=== PATIENT | female | born 1940 | race Caucasian/White ===

== ENCOUNTER 2019-04-14 10:13 | Inpatient (IN) ==
[2019-04-14 10:55] LABS: Basophils % 0.4 %; Eosinophils # 0.5 K/mcL (0.0-0.6); Hematocrit 36.5 % (35.3-44.9); Hemoglobin 12.3 g/dL (11.5-15.4); Immature Granulocytes % 0.3 % (0-4); Lymphocytes % 26.5 %; Mean Corpuscular HGB Conc 33.7 g/dL (31.6-35.5); Mean Corpuscular Hemoglobin 33.8 pg (28.0-33.3); Mean Corpuscular Volume 100.3 fL (83.0-100.0); Mean Platelet Volume 10.9 fL (9.4-12.4); Monocytes # 0.8 K/mcL (0.0-1.3); Monocytes % 7.4 %; Neutrophils # 6.9 K/mcL (1.6-8.9); Platelet Count 212 K/mcL (140-400); Red Blood Count 3.64 M/mcL (3.82-4.97); Red Cell Distribution Width 13.2 % (11.5-14.5); Segmented Neutrophils % 61.4 %; White Blood Count 11.2 K/mcL (4.3-11.1)
[2019-04-14 10:59] LABS: INR 1.1; Prothrombin Time 12.2 Seconds (9.4-12.1)
[2019-04-14 11:15] LABS: Calcium 10.2 mg/dL (8.6-10.3); Magnesium 2.1 mg/dL (1.6-2.6); Potassium 4.5 mEq/L (3.5-5.1); Troponin I 0.03 ng/mL (< 0.04)
[2019-04-14 11:57] LABS: Bacteria,Urine Many per hpf (None-Few); Bilirubin,Urine Negative (Negative); Blood,Urine Negative (Negative); Clarity,Urine Cloudy (Clear); Color,Urine Yellow (Yellow); Glucose,Urine (UA) Normal (Normal); Hyaline Casts,Urine None Seen per lpf (None-Few); Ketones,Urine Negative (Negative); Leukocyte Esterase,Urine Small (Negative); Nitrite,Urine Positive (Negative); Protein,Urine 30 mg/dL (Neg-Trace); RBC,Urine 0-3 per hpf (0-3); Specific Gravity,Urine 1.022 (1.010-1.025); Squamous Epithelial Cell,Urine Few per lpf (None-Few); Urobilinogen,Urine Normal (Normal); WBC,Urine 15-30 per hpf (0-3)
[2019-04-14 12:00] LABS: Thyroid Stimulating Hormone 1.705 mcIU/mL (0.340-5.600)
[2019-04-14] MEDS ORDERED: cefTRIAXone 1,000 MG in Water for inj. (sterile) 10 ML IVP STA (12:13)
[2019-04-14] MEDS ORDERED: 0.9 % Sodium Chloride 1,000 ML IVC STA (12:33)
[2019-04-14] MEDS ORDERED: Mag Hydrox/Al Hydrox/Simeth 30 ML UDC PO PRN (14:08)
[2019-04-14] MEDS ORDERED: traMADol 50 MG TABLET PO PRN (14:08)
[2019-04-14] MEDS ORDERED: Naloxone 0.4 MG/ML INJ IVP PRN (14:08)
[2019-04-14] MEDS ORDERED: MOM Conc 10 ML UD.LIQ PO PRN (14:08)
[2019-04-14] MEDS ORDERED: Acetaminophen 325 MG TABLET PO PRN (14:08)
[2019-04-14] MEDS ORDERED: *HR* Promethazine 25 MG/ML VIAL IVP PRN (14:08)
[2019-04-14] MEDS ORDERED: Ondansetron 4 MG/2 ML VIAL IVP PRN (14:08)
[2019-04-14] MEDS ORDERED: Ondansetron ODT 4 MG TAB.RAPDIS PO PRN (15:43)
[2019-04-14] MEDS ORDERED: Furosemide 40 MG TABLET PO SCH (15:45)
[2019-04-14] MEDS ORDERED: D5% in Water 1,000 ML IVC PRN (15:47)
[2019-04-14] MEDS ORDERED: Dextrose Gel 15 GM/37.5 ML TUBE PO PRN ×2 (15:47)
[2019-04-14] MEDS ORDERED: *HR* Dextrose 50 % in Water (Syg) 50 ML SYRINGE IVP PRN (15:47)
[2019-04-14] MEDS ORDERED: Azithromycin 500 MG in 0.9 % Sodium Chloride 250 ML IVPB SCH (17:00)
[2019-04-14] MEDS: *HR* Heparin 5,000 UNIT/ML VIAL SQ SCH (18:24)
[2019-04-14] MEDS: Insulin LISPRO 300 UNITS/3 ML VIAL SQ SCH ×2 (18:24→23:38)
[2019-04-14] MEDS: Acetaminophen 325 MG TABLET PO SCH (20:36)
[2019-04-14] MEDS: Pregabalin 75 MG CAPSULE PO SCH (20:36)
[2019-04-14] MEDS: Carbidopa/Levodopa 25/100 TABLET PO SCH (20:38)
[2019-04-14] MEDS ORDERED: cefTRIAXone 2,000 MG in Water for inj. (sterile) 20 ML IVP SCH (21:00)
[2019-04-14] MEDS: Ipratropium/Albuterol Neb 3 ML IH SCH (21:39)
[2019-04-15 02:12] LABS: Basophils % 0.4 %; Eosinophils # 0.2 K/mcL (0.0-0.6); Eosinophils % 2.5 %; Hematocrit 30.8 % (35.3-44.9); Hemoglobin 10.1 g/dL (11.5-15.4); Immature Granulocytes % 0.3 % (0-4); Lymphocytes # 1.8 K/mcL (0.6-4.6); Lymphocytes % 25.5 %; Mean Corpuscular HGB Conc 32.8 g/dL (31.6-35.5); Mean Corpuscular Hemoglobin 32.8 pg (28.0-33.3); Mean Platelet Volume 10.4 fL (9.4-12.4); Monocytes # 0.8 K/mcL (0.0-1.3); Monocytes % 11.3 %; Neutrophils # 4.3 K/mcL (1.6-8.9); Platelet Count 178 K/mcL (140-400); Red Blood Count 3.08 M/mcL (3.82-4.97); Red Cell Distribution Width 13.3 % (11.5-14.5); White Blood Count 7.1 K/mcL (4.3-11.1)
[2019-04-15 02:33] LABS: Calcium 9.1 mg/dL (8.6-10.3); Potassium 4.4 mEq/L (3.5-5.1)
[2019-04-15] MEDS: Ipratropium/Albuterol Neb 3 ML IH SCH ×4 (03:18→22:19)
[2019-04-15] MEDS: *HR* Heparin 5,000 UNIT/ML VIAL SQ SCH ×2 (05:43→17:27)
[2019-04-15] MEDS: Acetaminophen 325 MG TABLET PO SCH ×2 (06:05→22:02)
[2019-04-15] MEDS: Cholecalciferol (D-3) 1,000 UNIT (25MCG) TABLET PO SCH (08:04)
[2019-04-15] MEDS: Carbidopa/Levodopa 25/100 TABLET PO SCH ×3 (08:04→23:18)
[2019-04-15] MEDS: Aspirin Enteric Coated 81 MG Tablet PO SCH (08:04)
[2019-04-15] MEDS: Pregabalin 75 MG CAPSULE PO SCH ×2 (08:04→22:03)
[2019-04-15] MEDS: Vitamin E 200 UNIT (90MG) CAPSULE PO SCH (08:05)
[2019-04-15] MEDS: Insulin LISPRO 300 UNITS/3 ML VIAL SQ SCH ×4 (08:13→23:16)
[2019-04-15] MEDS: Insulin DETEMIR 100 UNIT/ML X5UNITS SQ SCH (08:16)
[2019-04-15] MEDS ORDERED: Deutetrabenazine [Austedo] 12 MG PO SCH (09:00)
[2019-04-15] MEDS ORDERED: cefTRIAXone 2,000 MG in 0.9 % Sodium Chloride Mini Bag 100 ML IVPB SCH (09:00)
[2019-04-15] MEDS ORDERED: Famotidine 20 MG TABLET PO SCH (09:00)
[2019-04-15] MEDS ORDERED: Azithromycin 250 MG TABLET PO SCH (09:00)
[2019-04-15] MEDS ORDERED: Sucralfate 1 GM TABLET PO SCH (09:00)
[2019-04-15] MEDS ORDERED: Ringers Solution, Lactated 1,000 ML IVC SCH (15:15)
[2019-04-15] MEDS: Sucralfate 1 GM TABLET PO SCH (17:27)
[2019-04-15] MEDS ORDERED: DEUTETRABENAZINE 12 MG PO SCH (18:00)
[2019-04-16] MEDS: Ipratropium/Albuterol Neb 3 ML IH SCH ×4 (03:44→21:37)
[2019-04-16] MEDS: *HR* Heparin 5,000 UNIT/ML VIAL SQ SCH ×2 (05:04→17:06)
[2019-04-16 05:49] LABS: Basophils % 0.3 %; Eosinophils # 0.4 K/mcL (0.0-0.6); Eosinophils % 6.5 %; Hematocrit 30.6 % (35.3-44.9); Hemoglobin 9.7 g/dL (11.5-15.4); Immature Granulocytes % 0.3 % (0-4); Lymphocytes # 2.1 K/mcL (0.6-4.6); Lymphocytes % 36.1 %; Mean Corpuscular HGB Conc 31.7 g/dL (31.6-35.5); Mean Corpuscular Hemoglobin 32.7 pg (28.0-33.3); Mean Platelet Volume 10.6 fL (9.4-12.4); Monocytes # 0.6 K/mcL (0.0-1.3); Monocytes % 10.6 %; Neutrophils # 2.6 K/mcL (1.6-8.9); Platelet Count 175 K/mcL (140-400); Red Blood Count 2.97 M/mcL (3.82-4.97); Red Cell Distribution Width 13.2 % (11.5-14.5); Segmented Neutrophils % 46.2 %; White Blood Count 5.7 K/mcL (4.3-11.1)
[2019-04-16 06:12] LABS: Calcium 9.7 mg/dL (8.6-10.3); Magnesium 1.9 mg/dL (1.6-2.6); Phosphorous 3.3 mg/dL (2.7-4.5); Potassium 4.2 mEq/L (3.5-5.1)
[2019-04-16] MEDS: Pregabalin 75 MG CAPSULE PO SCH ×2 (07:18→20:59)
[2019-04-16] MEDS: Aspirin Enteric Coated 81 MG Tablet PO SCH (07:18)
[2019-04-16] MEDS: Vitamin E 200 UNIT (90MG) CAPSULE PO SCH (07:18)
[2019-04-16] MEDS: Acetaminophen 325 MG TABLET PO SCH ×2 (07:18→20:59)
[2019-04-16] MEDS: Cholecalciferol (D-3) 1,000 UNIT (25MCG) TABLET PO SCH (07:18)
[2019-04-16] MEDS: Carbidopa/Levodopa 25/100 TABLET PO SCH ×3 (07:18→20:59)
[2019-04-16] MEDS: Insulin DETEMIR 100 UNIT/ML X5UNITS SQ SCH (07:19)
[2019-04-16] MEDS: cefTRIAXone 1,000 MG in 0.9 % Sodium Chloride Mini Bag 100 ML IVPB SCH (07:19)
[2019-04-16] MEDS: Insulin LISPRO 300 UNITS/3 ML VIAL SQ SCH ×4 (07:20→21:01)
[2019-04-16] MEDS: Sucralfate 1 GM TABLET PO SCH (16:50)
[2019-04-16] MEDS ORDERED: Deutetrabenazine [Austedo] 12 MG PO SCH (18:00)
[2019-04-17] MEDS: Ipratropium/Albuterol Neb 3 ML IH SCH ×2 (04:02→10:01)
[2019-04-17 04:42] LABS: Basophils % 0.4 %; Eosinophils # 0.3 K/mcL (0.0-0.6); Eosinophils % 6.1 %; Hematocrit 29.8 % (35.3-44.9); Hemoglobin 9.5 g/dL (11.5-15.4); Immature Granulocytes % 0.4 % (0-4); Lymphocytes # 2.3 K/mcL (0.6-4.6); Lymphocytes % 40.7 %; Mean Corpuscular HGB Conc 31.9 g/dL (31.6-35.5); Mean Corpuscular Hemoglobin 33.1 pg (28.0-33.3); Mean Corpuscular Volume 103.8 fL (83.0-100.0); Mean Platelet Volume 10.7 fL (9.4-12.4); Monocytes # 0.5 K/mcL (0.0-1.3); Monocytes % 8.9 %; Neutrophils # 2.4 K/mcL (1.6-8.9); Platelet Count 172 K/mcL (140-400); Red Blood Count 2.87 M/mcL (3.82-4.97); Red Cell Distribution Width 12.7 % (11.5-14.5); Segmented Neutrophils % 43.5 %; White Blood Count 5.6 K/mcL (4.3-11.1)
[2019-04-17 05:08] LABS: Calcium 9.8 mg/dL (8.6-10.3); Magnesium 2.1 mg/dL (1.6-2.6)
[2019-04-17] MEDS: *HR* Heparin 5,000 UNIT/ML VIAL SQ SCH (06:09)
[2019-04-17 07:40] VITALS: BP 132/70
[2019-04-17] MEDS: Acetaminophen 325 MG TABLET PO SCH (08:11)
[2019-04-17] MEDS: Cholecalciferol (D-3) 1,000 UNIT (25MCG) TABLET PO SCH (08:11)
[2019-04-17] MEDS: Vitamin E 200 UNIT (90MG) CAPSULE PO SCH (08:11)
[2019-04-17] MEDS: Aspirin Enteric Coated 81 MG Tablet PO SCH (08:11)
[2019-04-17] MEDS: Insulin DETEMIR 100 UNIT/ML X5UNITS SQ SCH (08:12)
[2019-04-17] MEDS: cefTRIAXone 1,000 MG in 0.9 % Sodium Chloride Mini Bag 100 ML IVPB SCH (08:12)
[2019-04-17] MEDS: Carbidopa/Levodopa 25/100 TABLET PO SCH (08:12)
[2019-04-17] MEDS: Pregabalin 75 MG CAPSULE PO SCH (08:12)
[2019-04-17] MEDS: Insulin LISPRO 300 UNITS/3 ML VIAL SQ SCH (08:13)
[2019-04-17] MEDS ORDERED: FLU Vac QV 19-20 (6Month+)/PF 0.5 ML SYRINGE IM ONE (10:24)
== END 2019-04-17 10:36 | disposition home health service (06) | DRG 689 ==
LOC: 2ANU 10:13 → EMEROOARM 10:13 → SUATTDRO 12:58 → 2ANU 14:41 → SUATTDRO 04-15 14:58
PROVIDERS: ADMIT Internal Medicine; ATTEND Pharmacist

== ENCOUNTER 2020-11-28 20:26 | Inpatient (IN) ==
[2020-11-28] MEDS ORDERED: Isovue-370 500 ML BOTTLE IVP ONE (20:38)
[2020-11-28] MEDS ORDERED: Metoclopramide 10 MG/2 ML VIAL IVP ONE (20:39)
[2020-11-28] MEDS ORDERED: Morphine Sulfate 2 MG/ML SYRINGE IVP ONE (20:42)
[2020-11-28] MEDS ORDERED: Famotidine 20 MG/2 ML VIAL IVP ONE (20:42)
[2020-11-28] MEDS ORDERED: Ondansetron 4 MG/2 ML VIAL IVP ONE (20:42)
[2020-11-28 20:56] LABS: Basophils # 0.1 K/mcL (0.0-0.2); Basophils % 0.3 %; Eosinophils # 0.1 K/mcL (0.0-0.6); Eosinophils % 0.6 %; Hematocrit 42.1 % (35.3-44.9); Hemoglobin 13.2 g/dL (11.5-15.4); Immature Granulocytes % 0.4 % (0-4); Lymphocytes # 1.5 K/mcL (0.6-4.6); Lymphocytes % 10.6 %; Mean Corpuscular HGB Conc 31.4 g/dL (31.6-35.5); Mean Corpuscular Hemoglobin 31.4 pg (28.0-33.3); Mean Corpuscular Volume 100.2 fL (83.0-100.0); Mean Platelet Volume 10.7 fL (9.4-12.4); Monocytes # 0.7 K/mcL (0.0-1.3); Monocytes % 4.7 %; Platelet Count 254 K/mcL (140-400); Red Cell Distribution Width 12.7 % (11.5-14.5); Segmented Neutrophils % 83.4 %; White Blood Count 14.4 K/mcL (4.3-11.1)
[2020-11-28 21:22] LABS: Alanine Aminotransferase 3 Units/L (7-52); Albumin 4.2 g/dL (3.5-5.7); Albumin/Globulin Ratio 1.3 (1.1-2.2); Alkaline Phosphatase 97 Units/L (34-104); Aspartate Amino Transferase 16 Units/L (13-39); BUN/Creatinine Ratio 15 (6-26); Bilirubin,Direct 0.1 mg/dL (0.0-0.2); Bilirubin,Indirect 0.5 mg/dL (0.0-1.0); Bilirubin,Total 0.6 mg/dL (0.3-1.0); Blood Urea Nitrogen 28 mg/dL (8-23); Calcium 9.7 mg/dL (8.6-10.3); Carbon Dioxide 22 mEq/L (23-29); Chloride 105 mEq/L (98-107); Globulin 3.2 g/dL (2.4-3.5); Glucose 236 mg/dL (70-105); Lipase 24 Units/L (11-82); Osmolality,Calculated 301 (280-300); Potassium 4.4 mEq/L (3.5-5.1); Sodium 139 mEq/L (136-145); Total Protein 7.4 g/dL (6.4-8.9); eGFR For African Americans 30 (> 60); eGFR For Non-African Americans 25 (> 60)
[2020-11-28 21:29] LABS: Troponin I < 0.03 ng/mL (< 0.04)
[2020-11-28] MEDS ORDERED: 0.9 % Sodium Chloride 1,000 ML IVC ONE (22:40)
[2020-11-28] MEDS ORDERED: Ondansetron 4 MG/2 ML VIAL IVP PRN (23:34)
[2020-11-28] MEDS ORDERED: Naloxone 0.4 MG/ML INJ IVP PRN (23:34)
[2020-11-28] MEDS ORDERED: 0.9 % Sodium Chloride 1,000 ML IVC SCH (23:45)
[2020-11-29] MEDS ORDERED: Dextrose Gel 15 GM/37.5 ML TUBE PO PRN ×2 (02:50)
[2020-11-29] MEDS ORDERED: *HR* Dextrose 50 % in Water (Vial) 50 ML VIAL IVP PRN (02:50)
[2020-11-29] MEDS ORDERED: D5% in Water 1,000 ML IVC PRN (02:50)
[2020-11-29 03:40] LABS: Hematocrit 40.5 % (35.3-44.9); Hemoglobin 12.9 g/dL (11.5-15.4); Mean Corpuscular HGB Conc 31.9 g/dL (31.6-35.5); Mean Corpuscular Hemoglobin 32.3 pg (28.0-33.3); Mean Corpuscular Volume 101.3 fL (83.0-100.0); Mean Platelet Volume 10.8 fL (9.4-12.4); Platelet Count 206 K/mcL (140-400); Red Cell Distribution Width 12.6 % (11.5-14.5); White Blood Count 12.3 K/mcL (4.3-11.1)
[2020-11-29 04:29] LABS: Potassium 5.7 mEq/L (3.5-5.1)
[2020-11-29] MEDS: Insulin LISPRO 300 UNITS/3 ML VIAL SUBQ SCH ×3 (06:24→18:53)
[2020-11-29] MEDS: *HR* Heparin 5,000 UNIT/ML VIAL SQ SCH ×3 (06:25→20:43)
[2020-11-29] MEDS ORDERED: Piperacillin/Tazobactam 3.375 GM in 0.9 % Sodium Chloride Mini Bag 100 ML IVPB SCH (08:00)
[2020-11-29] MEDS: Piperacillin/Tazobactam 3.375 GM in 0.9 % Sodium Chloride Mini Bag 100 ML IVPB SCH ×2 (10:55→20:42)
[2020-11-29 12:09] LABS: Calcium 9.1 mg/dL (8.6-10.3); Potassium 5.1 mEq/L (3.5-5.1)
[2020-11-29] MEDS: D5% in 0.9% NACL 1,000 ML IVC SCH (16:56)
[2020-11-29] MEDS: Pregabalin 75 MG CAPSULE PO SCH (20:41)
[2020-11-30] MEDS: Insulin LISPRO 300 UNITS/3 ML VIAL SUBQ SCH ×4 (01:11→21:16)
[2020-11-30] MEDS: *HR* Heparin 5,000 UNIT/ML VIAL SQ SCH ×3 (05:36→21:23)
[2020-11-30 06:43] LABS: Basophils % 0.3 %; Eosinophils # 0.1 K/mcL (0.0-0.6); Hematocrit 36.4 % (35.3-44.9); Immature Granulocytes % 0.3 % (0-4); Lymphocytes % 19.2 %; Mean Corpuscular Hemoglobin 32.2 pg (28.0-33.3); Mean Corpuscular Volume 103.7 fL (83.0-100.0); Mean Platelet Volume 11.3 fL (9.4-12.4); Monocytes # 0.9 K/mcL (0.0-1.3); Monocytes % 8.2 %; Neutrophils # 7.5 K/mcL (1.6-8.9); Platelet Count 214 K/mcL (140-400); Red Blood Count 3.51 M/mcL (3.82-4.97); Red Cell Distribution Width 13.1 % (11.5-14.5); White Blood Count 10.6 K/mcL (4.3-11.1)
[2020-11-30 06:45] LABS: Hemoglobin 11.3 g/dL (11.5-15.4)
[2020-11-30 07:08] LABS: Albumin 3.6 g/dL (3.5-5.7); Albumin/Globulin Ratio 1.2 (1.1-2.2); Bilirubin,Direct 0.1 mg/dL (0.0-0.2); Bilirubin,Indirect 0.5 mg/dL (0.0-1.0); Bilirubin,Total 0.6 mg/dL (0.3-1.0); Globulin 3.1 g/dL (2.4-3.5); Magnesium 1.8 mg/dL (1.6-2.6); Potassium 4.5 mEq/L (3.5-5.1); Total Protein 6.7 g/dL (6.4-8.9)
[2020-11-30 07:18] LABS: Thyroid Stimulating Hormone 6.528 mcIU/mL (0.340-5.600)
[2020-11-30] MEDS: Vitamin E 200 UNIT (90MG) CAPSULE PO SCH ×2 (07:52→08:36)
[2020-11-30] MEDS: Aspirin Enteric Coated 81 MG Tablet PO SCH ×2 (07:52→08:29)
[2020-11-30] MEDS: PARoxetine 20 MG TABLET PO SCH ×2 (07:52→08:29)
[2020-11-30] MEDS: LEVODOPA PO SCH ×3 (07:52→19:33)
[2020-11-30] MEDS: CARBIDOPA PO SCH ×3 (07:52→19:33)
[2020-11-30] MEDS: Pregabalin 75 MG CAPSULE PO SCH ×3 (07:52→21:22)
[2020-11-30] MEDS: Piperacillin/Tazobactam 3.375 GM in 0.9 % Sodium Chloride Mini Bag 100 ML IVPB SCH (10:14)
[2020-11-30] MEDS: Acetaminophen 325 MG TABLET PO PRN ×2 (10:14→21:29)
[2020-11-30] MEDS: Sucralfate 1 GM TABLET PO SCH (17:26)
[2020-11-30 17:34] LABS: Estimated Average Glucose 160 mg/dl; Hemoglobin A1C 7.2 %
[2020-11-30] MEDS ORDERED: DEUTETRABENAZINE 12 MG PO SCH (21:00)
[2020-12-01 04:29] LABS: Basophils % 0.3 %; Eosinophils # 0.3 K/mcL (0.0-0.6); Eosinophils % 3.9 %; Hematocrit 32.3 % (35.3-44.9); Hemoglobin 10.3 g/dL (11.5-15.4); Immature Granulocytes % 0.3 % (0-4); Lymphocytes # 2.8 K/mcL (0.6-4.6); Mean Corpuscular HGB Conc 31.9 g/dL (31.6-35.5); Mean Corpuscular Hemoglobin 32.7 pg (28.0-33.3); Mean Corpuscular Volume 102.5 fL (83.0-100.0); Mean Platelet Volume 10.8 fL (9.4-12.4); Monocytes # 0.6 K/mcL (0.0-1.3); Monocytes % 6.9 %; Platelet Count 186 K/mcL (140-400); Red Blood Count 3.15 M/mcL (3.82-4.97); Red Cell Distribution Width 12.7 % (11.5-14.5); Segmented Neutrophils % 56.6 %; White Blood Count 8.8 K/mcL (4.3-11.1)
[2020-12-01 04:50] LABS: Calcium 8.7 mg/dL (8.6-10.3); Magnesium 1.7 mg/dL (1.6-2.6); Potassium 4.1 mEq/L (3.5-5.1)
[2020-12-01] MEDS: *HR* Heparin 5,000 UNIT/ML VIAL SQ SCH ×3 (05:12→23:29)
[2020-12-01] MEDS: Pregabalin 75 MG CAPSULE PO SCH ×2 (09:29→20:26)
[2020-12-01] MEDS: Vitamin E 200 UNIT (90MG) CAPSULE PO SCH (09:29)
[2020-12-01] MEDS: PARoxetine 20 MG TABLET PO SCH (09:30)
[2020-12-01] MEDS: Aspirin Enteric Coated 81 MG Tablet PO SCH (09:30)
[2020-12-01] MEDS: Insulin LISPRO 300 UNITS/3 ML VIAL SUBQ SCH ×5 (09:33→20:36)
[2020-12-01] MEDS: LEVODOPA PO SCH (09:39)
[2020-12-01] MEDS: CARBIDOPA PO SCH (09:39)
[2020-12-01] MEDS: Acetaminophen 325 MG TABLET PO PRN ×2 (11:47→19:12)
[2020-12-01] MEDS: Sucralfate 1 GM TABLET PO SCH (19:08)
[2020-12-01] MEDS: D5% in 0.9% NACL 1,000 ML IVC SCH (19:48)
[2020-12-01] MEDS: Amoxicillin/Clavulanate 500 MG TABLET PO SCH (20:26)
[2020-12-02 03:54] LABS: Hematocrit 31.1 % (35.3-44.9); Hemoglobin 10.3 g/dL (11.5-15.4)
[2020-12-02] MEDS: *HR* Heparin 5,000 UNIT/ML VIAL SQ SCH (06:36)
[2020-12-02 10:04] VITALS: BP 136/80
[2020-12-02] MEDS: Amoxicillin/Clavulanate 500 MG TABLET PO SCH (10:16)
[2020-12-02] MEDS: Acetaminophen 325 MG TABLET PO PRN (10:17)
[2020-12-02] MEDS: Vitamin E 200 UNIT (90MG) CAPSULE PO SCH (10:18)
[2020-12-02] MEDS: PARoxetine 20 MG TABLET PO SCH (10:19)
[2020-12-02] MEDS: Pregabalin 75 MG CAPSULE PO SCH (10:19)
[2020-12-02] MEDS: Aspirin Enteric Coated 81 MG Tablet PO SCH (10:19)
[2020-12-02] MEDS: Insulin LISPRO 300 UNITS/3 ML VIAL SUBQ SCH ×2 (10:20→12:15)
== END 2020-12-02 12:21 | disposition home health service (06) | DRG 872 ==
LOC: 3ANU 20:26 → EMEROOARM 20:26 → SUATTDRO 11-29 00:53 → 3ANU 11-29 01:58 → SUATTDRO 11-29 21:32
PROVIDERS: ADMIT Student in an Organized Health Care Education/Training Program; ATTEND Internal Medicine

== ENCOUNTER 2021-01-26 15:50 | Inpatient (IN) ==
[2021-01-26 16:21] LABS: Basophils % 0.6 %; Eosinophils # 0.2 K/mcL (0.0-0.6); Hematocrit 37.6 % (35.3-44.9); Immature Granulocytes % 0.2 % (0-4); Lymphocytes # 2.4 K/mcL (0.6-4.6); Lymphocytes % 46.9 %; Mean Corpuscular HGB Conc 31.9 g/dL (31.6-35.5); Mean Corpuscular Hemoglobin 31.7 pg (28.0-33.3); Mean Corpuscular Volume 99.5 fL (83.0-100.0); Mean Platelet Volume 10.9 fL (9.4-12.4); Monocytes # 0.4 K/mcL (0.0-1.3); Neutrophils # 2.1 K/mcL (1.6-8.9); Platelet Count 198 K/mcL (140-400); Red Blood Count 3.78 M/mcL (3.82-4.97); Red Cell Distribution Width 12.7 % (11.5-14.5); Segmented Neutrophils % 42.3 %
[2021-01-26 16:39] LABS: BUN/Creatinine Ratio 13 (6-26); Blood Urea Nitrogen 21 mg/dL (8-23); Calcium 9.6 mg/dL (8.6-10.3); Carbon Dioxide 26 mEq/L (23-29); Chloride 107 mEq/L (98-107); Glucose 161 mg/dL (70-105); Osmolality,Calculated 296 (280-300); Potassium 4.6 mEq/L (3.5-5.1); Sodium 140 mEq/L (136-145); Troponin I < 0.03 ng/mL (< 0.04); eGFR For African Americans 37 (> 60); eGFR For Non-African Americans 30 (> 60)
[2021-01-26] MEDS ORDERED: Naloxone 0.4 MG/ML INJ IVP PRN (17:01)
[2021-01-26] MEDS ORDERED: Nitroglycerin 0.4 MG TAB.SUBL SL PRN (17:03)
[2021-01-26] MEDS ORDERED: *HR* Dextrose 50 % in Water (Vial) 50 ML VIAL IVP PRN (17:04)
[2021-01-26] MEDS ORDERED: Dextrose Gel 15 GM/37.5 ML TUBE PO PRN ×2 (17:04)
[2021-01-26] MEDS ORDERED: D5% in Water 1,000 ML IVC PRN (17:04)
[2021-01-26] MEDS ORDERED: Ipratropium/Albuterol Neb 3 ML IH PRN (17:05)
[2021-01-26] MEDS ORDERED: Benzonatate 100 MG CAPSULE PO PRN (17:30)
[2021-01-26] MEDS ORDERED: predniSONE 20 MG TABLET PO ONE ×2 (17:34→21:50)
[2021-01-26] MEDS ORDERED: Perflutren Lipid Microsphere 1.3 ML in 0.9 % Sodium Chloride 8.7 ML IVP PRN (17:36)
[2021-01-26] MEDS: carvediloL 6.25 MG TABLET PO SCH (21:45)
[2021-01-26] MEDS: Pregabalin 75 MG CAPSULE PO SCH (21:45)
[2021-01-26] MEDS: Acetaminophen 325 MG TABLET PO PRN (21:56)
[2021-01-26 23:04] LABS: Adenovirus Not Detected (Not Detect); Coronavirus 229E Not Detected (Not Detect); Coronavirus HKU1 Not Detected (Not Detect); Coronavirus NL63 Not Detected (Not Detect); Coronavirus OC43 Not Detected (Not Detect); SARS-CoV-2 Not Detected (Not Detect)
[2021-01-26 23:05] LABS: Bordetella Pertussis Not Detected (Not Detect); Chlamydophila pneumoniae Not Detected (Not Detect); Human Metapneumovirus Not Detected (Not Detect); Human Rhinovirus/Enterovirus Not Detected (Not Detect); Influenza A Subtype 2009 H1 Not Detected (Not Detect); Influenza B Not Detected (Not Detect); Mycoplasma pneumoniae Not Detected (Not Detect); Parainfluenza Virus 1 Not Detected (Not Detect); Parainfluenza Virus 2 Not Detected (Not Detect); Parainfluenza Virus 3 Not Detected (Not Detect); Parainfluenza Virus 4 Not Detected (Not Detect); Respiratory Syncytial Virus Not Detected (Not Detect)
[2021-01-27 02:02] LABS: Alanine Aminotransferase 4 Units/L (7-52); Albumin 3.6 g/dL (3.5-5.7); Albumin/Globulin Ratio 1.3 (1.1-2.2); Alkaline Phosphatase 87 Units/L (34-104); Aspartate Amino Transferase 14 Units/L (13-39); BUN/Creatinine Ratio 14 (6-26); Bilirubin,Total 0.4 mg/dL (0.3-1.0); Blood Urea Nitrogen 22 mg/dL (8-23); Calcium 9.2 mg/dL (8.6-10.3); Carbon Dioxide 21 mEq/L (23-29); Chloride 109 mEq/L (98-107); Globulin 2.8 g/dL (2.4-3.5); Glucose 252 mg/dL (70-105); Magnesium 1.8 mg/dL (1.6-2.6); Osmolality,Calculated 302 (280-300); Potassium 4.5 mEq/L (3.5-5.1); Sodium 140 mEq/L (136-145); Total Protein 6.4 g/dL (6.4-8.9); Troponin I < 0.03 ng/mL (< 0.04); eGFR For African Americans 39 (> 60); eGFR For Non-African Americans 32 (> 60)
[2021-01-27] MEDS: *HR* Enoxaparin 40 MG/0.4 ML SYRINGE SQ SCH (05:53)
[2021-01-27] MEDS ORDERED: Regadenoson 0.4 MG/5 ML SYRINGE IVP ONE (06:17)
[2021-01-27] MEDS: Insulin LISPRO 300 UNITS/3 ML VIAL SUBQ SCH ×3 (09:56→17:30)
[2021-01-27] MEDS: carvediloL 6.25 MG TABLET PO SCH ×2 (10:37→17:30)
[2021-01-27] MEDS: Pregabalin 75 MG CAPSULE PO SCH ×2 (10:37→20:17)
[2021-01-27] MEDS: Aspirin Enteric Coated 81 MG Tablet PO SCH (10:37)
[2021-01-27] MEDS: predniSONE 20 MG TABLET PO SCH (10:37)
[2021-01-27] MEDS: Furosemide 20 MG/2 ML VIAL IVP SCH ×2 (10:38→20:17)
[2021-01-27] MEDS: RYTARY PO SCH ×2 (11:21→20:20)
[2021-01-27] MEDS ORDERED: polyethylene glycoL 3350 17 GM POWD.PACK PO PRN (13:10)
[2021-01-27] MEDS ORDERED: *HR* OxyCODONE/APAP 5/325 TABLET PO PRN (13:10)
[2021-01-27] MEDS ORDERED: Sucralfate 1 GM TABLET PO SCH (18:00)
[2021-01-27] MEDS: Acetaminophen 325 MG TABLET PO PRN (20:18)
[2021-01-27] MEDS ORDERED: Deutetrabenazine [Austedo] 12 MG PO SCH (21:00)
[2021-01-28] MEDS: *HR* Enoxaparin 40 MG/0.4 ML SYRINGE SQ SCH (05:25)
[2021-01-28 06:50] VITALS: BP 110/69; PULSE 83; TEMP 98; O2SAT 97
[2021-01-28] MEDS: Insulin LISPRO 300 UNITS/3 ML VIAL SUBQ SCH (08:57)
[2021-01-28] MEDS: Furosemide 20 MG/2 ML VIAL IVP SCH (08:58)
[2021-01-28] MEDS ORDERED: Vitamin E 200 UNIT (90MG) CAPSULE PO SCH (09:00)
[2021-01-28] MEDS ORDERED: PARoxetine 20 MG TABLET PO SCH (09:00)
[2021-01-28] MEDS: carvediloL 6.25 MG TABLET PO SCH (09:00)
[2021-01-28] MEDS: predniSONE 20 MG TABLET PO SCH (09:00)
[2021-01-28] MEDS: Pregabalin 75 MG CAPSULE PO SCH (09:00)
[2021-01-28] MEDS: Aspirin Enteric Coated 81 MG Tablet PO SCH (09:02)
[2021-01-28] MEDS: RYTARY PO SCH (09:02)
== END 2021-01-28 12:32 | disposition home health service (06) | DRG 291 ==
LOC: 3BNU 15:50 → EMEROOARM 15:50 → 3BNU 20:32 → SUATTDRO 01-27 15:31
PROVIDERS: ADMIT Internal Medicine; ATTEND Internal Medicine

== ENCOUNTER 2021-12-28 06:54 | Observation (INO) ==
[2021-12-28] MEDS ORDERED: Iopamidol - 370 500 ML MLS IVP ONE ×2 (07:21→07:26)
[2021-12-28] MEDS ORDERED: Ondansetron 4 MG/2 ML VIAL IM ONE (07:31)
[2021-12-28] MEDS ORDERED: Morphine Sulfate 2 MG/ML SYRINGE IVP ONE (07:42)
[2021-12-28 08:08] LABS: Basophils % 0.6 %; Eosinophils # 0.2 K/mcL (0.0-0.6); Eosinophils % 3.5 %; Hematocrit 36.6 % (35.3-44.9); Hemoglobin 11.9 g/dL (11.5-15.4); Immature Granulocytes % 0.5 % (0-4); Lymphocytes # 1.5 K/mcL (0.6-4.6); Lymphocytes % 24.7 %; Mean Corpuscular HGB Conc 32.5 g/dL (31.6-35.5); Mean Corpuscular Hemoglobin 32.2 pg (28.0-33.3); Mean Corpuscular Volume 99.2 fL (83.0-100.0); Monocytes # 0.5 K/mcL (0.0-1.3); Monocytes % 7.9 %; Neutrophils # 3.9 K/mcL (1.6-8.9); Platelet Count 215 K/mcL (140-400); Red Blood Count 3.69 M/mcL (3.82-4.97); Red Cell Distribution Width 12.6 % (11.5-14.5); Segmented Neutrophils % 62.8 %; White Blood Count 6.2 K/mcL (4.3-11.1)
[2021-12-28 08:18] LABS: Alanine Aminotransferase 10 Units/L (7-52); Albumin/Globulin Ratio 1.4 (1.1-2.2); Alkaline Phosphatase 84 Units/L (34-104); Aspartate Amino Transferase 14 Units/L (13-39); BUN/Creatinine Ratio 16 (6-26); Bilirubin,Direct 0.1 mg/dL (0.0-0.2); Bilirubin,Indirect 0.6 mg/dL (0.0-1.0); Bilirubin,Total 0.7 mg/dL (0.3-1.0); Blood Urea Nitrogen 30 mg/dL (8-23); Calcium 9.3 mg/dL (8.6-10.3); Carbon Dioxide 25 mEq/L (23-29); Chloride 104 mEq/L (98-107); Globulin 2.9 g/dL (2.4-3.5); Glucose 222 mg/dL (70-105); Lipase 23 Units/L (11-82); Osmolality,Calculated 299 (280-300); Potassium 4.5 mEq/L (3.5-5.1); Sodium 138 mEq/L (136-145); Total Protein 6.9 g/dL (6.4-8.9); Troponin I < 0.03 ng/mL (< 0.04); eGFR For African Americans 31 (> 60); eGFR For Non-African Americans 26 (> 60)
[2021-12-28] MEDS ORDERED: Iopamidol - 370 500 ML MLS PO ONE (09:34)
[2021-12-28] MEDS ORDERED: Ondansetron 4 MG/2 ML VIAL IVP ONE ×2 (09:52→09:55)
[2021-12-28] MEDS ORDERED: Ondansetron 4 MG/2 ML VIAL ONE (09:55)
[2021-12-28 10:08] LABS: Bacteria,Urine Few per hpf (None-Few); Bilirubin,Urine Negative (Negative); Blood,Urine Negative (Negative); Clarity,Urine Clear (Clear); Color,Urine Light-Yellow (Yellow); Glucose,Urine (UA) 30 mg/dL (Normal); Ketones,Urine Negative (Negative); Leukocyte Esterase,Urine Small (Negative); Mucus,Urine Few per lpf (None-Few); Nitrite,Urine Negative (Negative); Protein,Urine 30 mg/dL (Neg-Trace); RBC,Urine 0-3 per hpf (0-3); Specific Gravity,Urine 1.015 (1.010-1.025); Squamous Epithelial Cell,Urine Few per hpf (None-Few); Urobilinogen,Urine Normal (Normal)
[2021-12-28] MEDS ORDERED: *HR* Dextrose 50 % in Water (Syg) 50 ML SYRINGE IVP PRN (14:28)
[2021-12-28] MEDS ORDERED: D5% in Water 1,000 ML IVC PRN (14:28)
[2021-12-28] MEDS ORDERED: Dextrose Gel 15 GM/37.5 ML TUBE PO PRN ×2 (14:28)
[2021-12-28] MEDS ORDERED: Naloxone 0.4 MG/ML INJ IVP PRN (14:28)
[2021-12-28] MEDS ORDERED: MOM Conc 10 ML UD.LIQ PO PRN (14:28)
[2021-12-28] MEDS: cefTRIAXone 1,000 MG in 0.9 % Sodium Chloride 10 ML IVP SCH (15:11)
[2021-12-28] MEDS: Ondansetron 4 MG/2 ML VIAL IVP PRN ×2 (15:11→21:13)
[2021-12-28] MEDS: 0.9 % Sodium Chloride 1,000 ML IVC SCH (15:12)
[2021-12-28] MEDS: *HR* Heparin 5,000 UNIT/ML VIAL SQ SCH (17:58)
[2021-12-28] MEDS: Insulin LISPRO 300 UNITS/3 ML VIAL SUBQ SCH (17:59)
[2021-12-28] MEDS: *HR* HYDROmorphone (PF) 1 MG/ML SYRINGE IVP PRN (18:21)
[2021-12-28] MEDS: Insulin DETEMIR 100 UNIT/ML X5UNITS SUBQ SCH (21:13)
[2021-12-29] MEDS ORDERED: Prochlorperazine 10 MG/2 ML VIAL IVP ONE (00:14)
[2021-12-29] MEDS: 0.9 % Sodium Chloride 1,000 ML IVC SCH (03:45)
[2021-12-29] MEDS: *HR* HYDROmorphone (PF) 1 MG/ML SYRINGE IVP PRN (03:52)
[2021-12-29] MEDS: *HR* Heparin 5,000 UNIT/ML VIAL SQ SCH (05:54)
[2021-12-29 06:02] LABS: Basophils % 0.5 %; Eosinophils # 0.2 K/mcL (0.0-0.6); Eosinophils % 2.4 %; Hematocrit 33.5 % (35.3-44.9); Immature Granulocytes % 0.5 % (0-4); Lymphocytes # 2.2 K/mcL (0.6-4.6); Lymphocytes % 32.7 %; Mean Corpuscular HGB Conc 32.8 g/dL (31.6-35.5); Mean Corpuscular Hemoglobin 32.4 pg (28.0-33.3); Mean Corpuscular Volume 98.8 fL (83.0-100.0); Mean Platelet Volume 10.9 fL (9.4-12.4); Monocytes # 0.6 K/mcL (0.0-1.3); Neutrophils # 3.7 K/mcL (1.6-8.9); Platelet Count 211 K/mcL (140-400); Red Blood Count 3.39 M/mcL (3.82-4.97); Red Cell Distribution Width 12.8 % (11.5-14.5); Segmented Neutrophils % 54.9 %; White Blood Count 6.6 K/mcL (4.3-11.1)
[2021-12-29 06:23] LABS: Calcium 8.9 mg/dL (8.6-10.3); Magnesium 1.9 mg/dL (1.6-2.6); Phosphorous 3.7 mg/dL (2.7-4.5); Potassium 4.3 mEq/L (3.5-5.1)
[2021-12-29] MEDS: cefTRIAXone 1,000 MG in 0.9 % Sodium Chloride 10 ML IVP SCH (08:31)
[2021-12-29] MEDS: Ondansetron 4 MG/2 ML VIAL IVP PRN ×2 (08:35→21:51)
[2021-12-29] MEDS: Insulin LISPRO 300 UNITS/3 ML VIAL SUBQ SCH ×3 (08:36→16:59)
[2021-12-29] MEDS ORDERED: Lidocaine -MPF 2% 5 ML VIAL ONE (13:36)
[2021-12-29] MEDS ORDERED: *HR* Propofol 200 MG/20 ML VIAL IVP ONE ×2 (13:37)
[2021-12-29] MEDS ORDERED: *HR* Succinylcholine 200 MG/10 ML VIAL IVP ONE (13:43)
[2021-12-29] MEDS ORDERED: Ondansetron 4 MG/2 ML VIAL ONE (14:41)
[2021-12-29] MEDS ORDERED: Acetaminophen IV 500 MG/50 ML BAG IVPB ONE (16:17)
[2021-12-29] MEDS: Pantoprazole 40 MG VIAL IVP SCH (16:53)
[2021-12-29] MEDS ORDERED: Sucralfate 1 GM TABLET PO SCH (18:00)
[2021-12-29] MEDS ORDERED: Acetaminophen 325 MG TABLET PO ONE (20:12)
[2021-12-29] MEDS: Apixaban 2.5 MG TABLET PO SCH (20:26)
[2021-12-29] MEDS: Insulin DETEMIR 100 UNIT/ML X5UNITS SUBQ SCH (20:31)
[2021-12-29] MEDS ORDERED: Melatonin 3 MG TABLET PO PRN (20:57)
[2021-12-29 22:55] LABS: Estimated Average Glucose 174 mg/dl; Hemoglobin A1C 7.7 %
[2021-12-30] MEDS: *HR* HYDROmorphone (PF) 1 MG/ML SYRINGE IVP PRN (00:40)
[2021-12-30] MEDS: Pantoprazole 40 MG VIAL IVP SCH (06:24)
[2021-12-30 07:10] VITALS: BP 141/75; PULSE 93; TEMP 98.7; O2SAT 94
[2021-12-30] MEDS: Ondansetron 4 MG/2 ML VIAL IVP PRN (08:11)
[2021-12-30] MEDS: cefTRIAXone 1,000 MG in 0.9 % Sodium Chloride 10 ML IVP SCH (08:15)
[2021-12-30] MEDS: Insulin LISPRO 300 UNITS/3 ML VIAL SUBQ SCH (08:17)
[2021-12-30] MEDS: Apixaban 2.5 MG TABLET PO SCH (08:17)
[2021-12-30] MEDS ORDERED: Pregabalin 75 MG CAPSULE PO SCH (09:00)
[2021-12-30] MEDS ORDERED: lisinopriL 10 MG TABLET PO SCH (09:00)
== END 2021-12-30 10:25 | disposition home health service (06) ==
LOC: EMEROOARM 06:54 → 3BNU 06:54 → SUATTDRO 15:27 → 3BNU 17:23
PROVIDERS: ADMIT Internal Medicine; ATTEND Registered Nurse